=== PATIENT | female | born 2000 | race Caucasian/White ===

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

== ENCOUNTER → 2021-01-16 | Outpatient (CLI) | payer OTHER | LOC: LAB 11:30 → LAB SHORT 11:30 | DX: Z33.1 Pregnant state, incidental (principal) | CPT/HCPCS: 87081; 87150 ==

== ENCOUNTER 2021-02-10 20:05 | Inpatient (IN) | payer OTHER ==
[~2021-02-10] VITALS: Ht 154.9 cm; Wt 70.5 kg
[2021-02-10 21:12] LABS: BASOPHILS ABSOLUTE AUTO 0.05 K/mm3 (0.00-0.23); BASOPHILS PERCENT AUTO 0 % (0-2); EOSINOPHILS ABSOLUTE AUTO 0.01 K/mm3 (0.00-0.68); EOSINOPHILS PERCENT AUTO 0 % (0-6); Hematocrit 35.4 % (33.0-51.0); Hemoglobin 12.7 g/dL (11.5-16.0); IMMATURE GRAN ABSOLUTE AUTO 0.19 K/mm3 (0.00-0.10); IMMATURE GRAN PERCENT AUTO 1 % (0-1); LYMPHOCYTES ABSOLUTE AUTO 1.15 K/mm3 (0.84-5.20); LYMPHOCYTES PERCENT AUTO 5 % (21-46); MONOCYTES ABSOLUTE AUTO 1.01 K/mm3 (0.16-1.47); MONOCYTES PERCENT AUTO 5 % (4-13); Mean Corpuscular HGB 32.2 pg (26.0-34.0); Mean Corpuscular HGB Conc 35.9 g/dL (31.5-36.5); Mean Corpuscular Volume 90 fL (80-100); Mean Platelet Volume 10.4 fL (9.1-12.4); NEUTROPHILS PERCENT AUTO 89 % (41-73); Platelet Count 227 K/mm3 (150-400); RDW Coefficient Variation 11.6 % (11.7-14.2); RDW Standard Deviation 37.7 fL (35.1-46.3); Red Blood Cell Count 3.95 M/mm3 (3.80-5.20); White Blood Cell Count 21.61 K/mm3 (4.00-11.30)
[2021-02-10 21:16] LABS: Influenza A, PCR NEGATIVE (NEGATIVE); Influenza B, PCR NEGATIVE (NEGATIVE); Resp Syncytial Virus, PCR NEGATIVE (NEGATIVE); SARS-Cov-2 (COVID-19) PCR, MMC NEGATIVE (NEGATIVE)
[2021-02-11 05:37] LABS: BASOPHILS ABSOLUTE AUTO 0.04 K/mm3 (0.00-0.23); BASOPHILS PERCENT AUTO 0 % (0-2); EOSINOPHILS PERCENT AUTO 0 % (0-6); Hematocrit 32.4 % (33.0-51.0); Hemoglobin 11.5 g/dL (11.5-16.0); IMMATURE GRAN ABSOLUTE AUTO 0.19 K/mm3 (0.00-0.10); IMMATURE GRAN PERCENT AUTO 1 % (0-1); LYMPHOCYTES ABSOLUTE AUTO 1.44 K/mm3 (0.84-5.20); LYMPHOCYTES PERCENT AUTO 6 % (21-46); MONOCYTES ABSOLUTE AUTO 1.52 K/mm3 (0.16-1.47); MONOCYTES PERCENT AUTO 6 % (4-13); Mean Corpuscular HGB 31.7 pg (26.0-34.0); Mean Corpuscular HGB Conc 35.5 g/dL (31.5-36.5); Mean Corpuscular Volume 89 fL (80-100); Mean Platelet Volume 10.4 fL (9.1-12.4); NEUTROPHILS ABSOLUTE AUTO 21.66 K/mm3 (1.96-9.15); NEUTROPHILS PERCENT AUTO 87 % (41-73); Platelet Count 202 K/mm3 (150-400); RDW Coefficient Variation 11.5 % (11.7-14.2); RDW Standard Deviation 37.2 fL (35.1-46.3); Red Blood Cell Count 3.63 M/mm3 (3.80-5.20); White Blood Cell Count 24.85 K/mm3 (4.00-11.30)
--- NOTE | 2021-02-11 09:57 | NUR ---
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 AGREE WITH ASSESSMENT AND INTERVENTIONS.
--- NOTE | 2021-02-11 10:39 | NUR ---
CORE REFERRAL FAXED.
== END 2021-02-12 10:00 | disposition home or self-care (01) | DRG 807 ==
LOC: OBS 20:05 → BC 20:05 → OBS 20:30 → BC 20:31
PROVIDERS: ADMIT Registered Nurse Community Health
PROC: 10907ZC Drainage of Amniotic Fluid, Therapeutic from Products of Conception, Via Natural or Artificial Opening (ICD-10-PCS; 2021-02-10)
PROC: 10E0XZZ Delivery of Products of Conception, External Approach (ICD-10-PCS; principal; 2021-02-11)
PROC: 0HQ9XZZ Repair Perineum Skin, External Approach (ICD-10-PCS; 2021-02-11)
DX: O70.0 First degree perineal laceration during delivery (principal); Z37.0 Single live birth; Z3A.40 40 weeks gestation of pregnancy; Z20.822 Contact with and (suspected) exposure to COVID-19
CPT/HCPCS: 0241U; 36415; 85025; 86850; 86900; 86901; A9270; J1885; J2590; J3010; J7120

== ENCOUNTER 2022-05-03 01:05 | Emergency (ER) | payer OTHER ==
[~2022-05-03] VITALS: Ht 154.9 cm; Wt 54.4 kg
== END 2022-05-03 04:20 | disposition left against medical advice (07) ==
LOC: ER 01:05
DX: R06.02 Shortness of breath (principal); R11.10 Vomiting, unspecified; Z53.21 Procedure and treatment not carried out due to patient leaving prior to being seen by health care provider
CPT/HCPCS: A9270

== ENCOUNTER 2022-09-09 09:41 | Emergency (ER) | payer OTHER ==
[~2022-09-09] VITALS: Ht 154.9 cm; Wt 56.7 kg
[2022-09-09 10:35] LABS: Source, Urine Clean Catch
[2022-09-09 10:41] LABS: Appearance, Urine Hazy (Clear); Bilirubin, Urine Neg (Neg); Blood, Urine Neg (Neg); Color, Urine Yellow (P-Yellow); Glucose Qualitative, Urine Neg (Neg); Ketones, Urine Neg (Neg); Leukocyte Esterase, Urine Neg (Neg); Nitrite, Urine Neg (Neg); Protein, Urine 3+ (Neg); Urobilinogen, Urine NORM (Normal)
[2022-09-09 11:49] LABS: Bacteria Few /hpf; Hyaline Casts 0-2 /lpf (0-2); Mucus Mod (0-Heavy); Red Blood Cells, Urine 0-2 /hpf (0-2); Squamous Epithelial Cells Mod /hpf (Few); White Blood Cells, Urine 0-2 /hpf (0-5)
== END 2022-09-09 13:24 | disposition home or self-care (01) ==
LOC: ER 09:41
PROVIDERS: Physician Assistant
DX: O26.891 Other specified pregnancy related conditions, first trimester (principal); R10.9 Unspecified abdominal pain; Z3A.01 Less than 8 weeks gestation of pregnancy; Y04.0XXA Assault by unarmed brawl or fight, initial encounter; Z91.038 Other insect allergy status
CPT/HCPCS: 36415; 81001; 84702

== ENCOUNTER 2022-09-29 08:00 | Emergency (ER) | payer OTHER ==
[~2022-09-29] VITALS: Ht 154.9 cm; Wt 59.0 kg
== END 2022-09-29 09:39 | disposition home or self-care (01) ==
LOC: ER 08:00
DX: O20.9 Hemorrhage in early pregnancy, unspecified (principal); Z3A.08 8 weeks gestation of pregnancy; Z91.030 Bee allergy status; Z87.891 Personal history of nicotine dependence
CPT/HCPCS: 36415; 76801; 76817; 84702

== ENCOUNTER → 2024-01-27 | Outpatient (CLI) | payer OTHER ==
[2024-01-29 11:19] LABS: APTIMA MEDIA TYPE Urine; C. TRACHOMATIS BY TMA Negative (Negative); N. GONORRHOEAE BY TMA Negative (Negative); SPECIMEN SOURCE Urine
== END | disposition home or self-care (01) ==
LOC: LAB SHORT 16:20 → LAB 16:20
PROVIDERS: Registered Nurse Community Health
DX: Z34.83 Encounter for supervision of other normal pregnancy, third trimester (principal)
CPT/HCPCS: 87491; 87591

== ENCOUNTER → 2024-04-26 | Outpatient (CLI) | payer OTHER ==
[2024-04-26 15:08] LABS: Hematocrit 31.3 % (33.0-51.0); Hemoglobin 10.8 g/dL (11.5-16.0)
== END | disposition home or self-care (01) ==
LOC: LAB 09:30 → LAB SHORT 09:30
PROVIDERS: Registered Nurse Community Health
DX: Z34.93 Encounter for supervision of normal pregnancy, unspecified, third trimester (principal)
CPT/HCPCS: 82950; 85014; 85018

== ENCOUNTER → 2024-06-15 | Outpatient (CLI) | payer OTHER | LOC: LAB SHORT 15:18 → LAB 15:18 | DX: Z34.93 Encounter for supervision of normal pregnancy, unspecified, third trimester (principal) | CPT/HCPCS: 87081; 87150 ==

== ENCOUNTER 2024-07-09 10:26 | Inpatient (IN) | payer OTHER ==
[~2024-07-09] VITALS: Ht 154.9 cm; Wt 75.0 kg
[2024-07-09] VITALS (14 sets, daily range): BP systolic 137–170; BP diastolic 68–100
[2024-07-09] MEDS ORDERED: PRENATAL TABLE1 EAC2 PO ×2 (11:09)
[2024-07-09] MEDS ORDERED: Misoprostol 200 MCG Tab BC PRN (11:10)
[2024-07-09] MEDS ORDERED: Lactated Ringer's 1,000 ML IV PRN (11:10)
[2024-07-09] MEDS ORDERED: Misoprostol 200 MCG Tab PR PRN ×2 (11:10→13:15)
[2024-07-09] MEDS ORDERED: Methylergonovine Maleate 0.2MG / ML 1ML Amp IM PRN ×2 (11:10→13:15)
[2024-07-09] MEDS ORDERED: ePHEDrine Sulfate 50 MG/ML 1ML Injection XX PRN (11:10)
[2024-07-09] MEDS ORDERED: Carboprost Tromethamine 250 MCG/ML 1ML Amp IM PRN (11:10)
[2024-07-09] MEDS ORDERED: Oxytocin 10 Unit / ML Vial IM PRN (11:10)
[2024-07-09] MEDS ORDERED: OXYTOCIN/RINGER'S LACTATE 500 ML IV PRN (11:10)
[2024-07-09] MEDS ORDERED: Ondansetron HCl 2 MG / ML 2ML Vial IV PRN (11:10)
[2024-07-09] MEDS ORDERED: Acetaminophen 500 MG Tab PO PRN (11:10)
[2024-07-09] MEDS ORDERED: Lactated Ringer's 1,000 ML IV SCH ×3 (11:10→13:15)
[2024-07-09] MEDS ORDERED: Calcium Carbonate 500 MG Tab Chew PO SCH (11:10)
[2024-07-09] MEDS ORDERED: FentaNYL 2mcg/ml-Bup 0.1% Epd 250 ML EPI PRN (11:10)
[2024-07-09] MEDS ORDERED: OXYTOCIN/RINGER'S LACTATE 500 ML IV ONE (11:12)
[2024-07-09] MEDS ORDERED: Lactated Ringer's 1,000 ML IV ONE (11:13)
[2024-07-09] MEDS ORDERED: Tranexamic Acid 100 ML IV SCH (11:15)
[2024-07-09 11:48] LABS: BASOPHILS ABSOLUTE AUTO 0.04 K/mm3 (0.00-0.23); BASOPHILS PERCENT AUTO 0 % (0-2); EOSINOPHILS ABSOLUTE AUTO 0.04 K/mm3 (0.00-0.68); EOSINOPHILS PERCENT AUTO 0 % (0-6); Hemoglobin 11.7 g/dL (11.5-16.0); IMMATURE GRAN PERCENT AUTO 1 % (0-1); LYMPHOCYTES PERCENT AUTO 13 % (21-46); MONOCYTES PERCENT AUTO 7 % (4-13); Mean Corpuscular HGB 31.5 pg (26.0-34.0); Mean Corpuscular HGB Conc 35.5 g/dL (31.5-36.5); Mean Corpuscular Volume 89 fL (80-100); NEUTROPHILS ABSOLUTE AUTO 10.59 K/mm3 (1.96-9.15); NEUTROPHILS PERCENT AUTO 79 % (41-73); Platelet Count 208 K/mm3 (150-400); RDW Coefficient Variation 12.1 % (11.7-14.2); RDW Standard Deviation 38.8 fL (35.1-46.3); Red Blood Cell Count 3.72 M/mm3 (3.80-5.20); White Blood Cell Count 13.37 K/mm3 (4.00-11.30)
[2024-07-09] MEDS ORDERED: Benzocaine Topical Anesthetic Spray 60GM TOP PRN (13:10)
[2024-07-09] MEDS ORDERED: FLU VACC TS2024-25(6MOS UP)/PF 45 MCG/0.5 ML SYRINGE IM ONE (13:10)
[2024-07-09] MEDS ORDERED: Docusate Sodium 100 MG Cap PO PRN (13:10)
[2024-07-09] MEDS ORDERED: Witch Hazel/Glycerin PADS TOP PRN (13:10)
[2024-07-09] MEDS ORDERED: Ketorolac Tromethamine 30mg Vial IV PRN (13:15)
[2024-07-09] MEDS ORDERED: Rho(D) Immune Globulin 300 MCG / SYR IM ONE (13:15)
[2024-07-09] MEDS ORDERED: Ibuprofen 400 MG Tab PO PRN (13:15)
[2024-07-09] MEDS ORDERED: Oxytocin 10 Unit / ML Vial IM ONE (13:20)
[2024-07-09] MEDS ORDERED: Lanolin Cream TOP PRN (13:20)
[2024-07-09] MEDS ORDERED: OxyCODONE 5 mg/Acetamin 325 mg TABLET PO PRN (13:20)
[2024-07-09] MEDS ORDERED: OXYTOCIN/RINGER'S LACTATE 500 ML IV SCH (13:20)
[2024-07-09] MEDS ORDERED: Acetaminophen 325 MG TABLET PO PRN (13:20)
[2024-07-10 01:17] VITALS: BP 144/93
[2024-07-10 05:18] VITALS: BP 133/85
[2024-07-10 05:45] LABS: Hemoglobin 10.8 g/dL (11.5-16.0); Mean Corpuscular HGB 30.9 pg (26.0-34.0); Mean Corpuscular HGB Conc 34.8 g/dL (31.5-36.5); Mean Corpuscular Volume 89 fL (80-100); Mean Platelet Volume 10.6 fL (9.1-12.4); Platelet Count 209 K/mm3 (150-400); RDW Coefficient Variation 12.3 % (11.7-14.2); RDW Standard Deviation 39.8 fL (35.1-46.3); Red Blood Cell Count 3.49 M/mm3 (3.80-5.20); White Blood Cell Count 14.69 K/mm3 (4.00-11.30)
[2024-07-10 07:35] VITALS: BP 139/91
[2024-07-10] MEDS ORDERED: Prenatal Vit/FE Fumarate/FA 1 Tab PO SCH (09:00)
[2024-07-10 11:56] VITALS: BP 158/93
[2024-07-10 12:51] VITALS: BP 148/82
== END 2024-07-10 12:50 | disposition home or self-care (01) | DRG 807 ==
LOC: OBS 10:26 → BC 10:26 → OBS 10:55 → BC 10:56
PROVIDERS: ADMIT Registered Nurse Community Health
PROC: 10E0XZZ Delivery of Products of Conception, External Approach (ICD-10-PCS; principal; 2024-07-09)
PROC: 10907ZC Drainage of Amniotic Fluid, Therapeutic from Products of Conception, Via Natural or Artificial Opening (ICD-10-PCS; 2024-07-09)
DX: O48.0 Post-term pregnancy (principal); Z37.0 Single live birth; O76 Abnormality in fetal heart rate and rhythm complicating labor and delivery; O70.0 First degree perineal laceration during delivery; Z3A.40 40 weeks gestation of pregnancy; Z91.030 Bee allergy status
CPT/HCPCS: 36415; 59025; 85025; 85027; 86850; 86900; 86901; 99213; A9270; J1885; J2590

== ENCOUNTER 2024-07-13 10:05 | Emergency (ER) | payer OTHER ==
[~2024-07-13] VITALS: Ht 154.9 cm; Wt 63.5 kg
[~2024-07-13 10:05] MED LIST changes: +PRENATAL TABLE1 EAC2 PO
[2024-07-13] MEDS ORDERED: LABE100 PO (10:41)
[2024-07-13 11:00] VITALS: BP 167/99
[2024-07-13 11:05] LABS: BASOPHILS ABSOLUTE AUTO 0.06 K/mm3 (0.00-0.23); BASOPHILS PERCENT AUTO 1 % (0-2); EOSINOPHILS ABSOLUTE AUTO 0.22 K/mm3 (0.00-0.68); EOSINOPHILS PERCENT AUTO 2 % (0-6); Hematocrit 33.4 % (33.0-51.0); Hemoglobin 11.5 g/dL (11.5-16.0); IMMATURE GRAN ABSOLUTE AUTO 0.06 K/mm3 (0.00-0.10); IMMATURE GRAN PERCENT AUTO 1 % (0-1); LYMPHOCYTES ABSOLUTE AUTO 1.82 K/mm3 (0.84-5.20); LYMPHOCYTES PERCENT AUTO 19 % (21-46); MONOCYTES ABSOLUTE AUTO 0.63 K/mm3 (0.16-1.47); MONOCYTES PERCENT AUTO 7 % (4-13); Mean Corpuscular HGB Conc 34.4 g/dL (31.5-36.5); Mean Corpuscular Volume 90 fL (80-100); NEUTROPHILS PERCENT AUTO 70 % (41-73); Platelet Count 263 K/mm3 (150-400); RDW Coefficient Variation 12.2 % (11.7-14.2); RDW Standard Deviation 40.1 fL (35.1-46.3); Red Blood Cell Count 3.71 M/mm3 (3.80-5.20); White Blood Cell Count 9.39 K/mm3 (4.00-11.30)
[2024-07-13 11:10] LABS: Albumin, Blood 2.9 g/dL (3.4-5.0); Albumin/Globulin Ratio 0.7 (0.8-1.8); Bilirubin, Total 0.3 mg/dL (0.1-1.0); Bun/Creatinine Ratio 12.2 (12.0-20.0); Calcium, Blood 9.2 mg/dL (8.5-10.1); Creatinine, Blood 0.49 mg/dL (0.40-1.00); Potassium, Blood 3.6 mmol/L (3.5-5.5); Total Protein, Blood 6.9 g/dL (6.4-8.2)
[2024-07-14] MEDS ORDERED: LABE100 PO (10:10)
== END 2024-07-13 11:15 | disposition other institution (70) ==
LOC: ER 10:05
PROVIDERS: Physician Assistant
DX: O11.5 Pre-existing hypertension with pre-eclampsia, complicating the puerperium (principal); K21.9 Gastro-esophageal reflux disease without esophagitis; J45.909 Unspecified asthma, uncomplicated; Z79.899 Other long term (current) drug therapy; Z91.030 Bee allergy status
CPT/HCPCS: 80053; 85025; 99284

== ENCOUNTER 2024-07-13 11:25 | Inpatient (IN) | payer OTHER ==
[~2024-07-13] VITALS: Ht 162.6 cm; Wt 70.0 kg
[2024-07-13] VITALS (22 sets, daily range): BP systolic 119–168; BP diastolic 61–107
[~2024-07-13 11:25] MED LIST changes: +LABE100 PO
[2024-07-13] MEDS ORDERED: Lactated Ringer's 1,000 ML IV SCH (11:35)
[2024-07-13] MEDS ORDERED: Magnesium Sul 4 GM/Water100 ML 100 ML IV ONE ×2 (11:35→11:41)
[2024-07-13] MEDS ORDERED: Magnesium Sulfate 500 ML IV SCH (11:35)
[2024-07-13] MEDS ORDERED: Calcium Gluconate 0.465 mEq/ml 10 ml Vial IV PRN (11:35)
--- NOTE | 2024-07-13 11:59 | NUR ---
pt is working on getting support here, has baby by herself, not able to start magso4 without someone to be able to care for baby, support may not be here til [phone] baby is not a pt and rn unable to provide baby care. mansoor quintero left a message to call rn, she is on her way in for another pt. pt has +1 dtr bilaterally, no clonus, denies all pih symptoms, trace to +1 edema to legs and feet, face looks a little puffy, but has been crying at being readmitted. baby in moms arms, pt reports baby is breastfeed only. have crib in room for pt.
[2024-07-13] MEDS ORDERED: Labetalol HCL 5 MG/ML 4ML Injection (Single Dose) ONE (12:07)
--- NOTE | 2024-07-13 12:07 | NUR ---
RADHA GEORGES HERE ORDER FOR IV LABETALOL X1 AND THEN TO SEE HOW BP DOES TIL FAMILY GET HERE
[2024-07-13] MEDS ORDERED: Labetalol HCL 5 MG/ML 4ML Injection (Single Dose) IV ONE (12:10)
[2024-07-13] MEDS ORDERED: NIFEdipine 10 MG Cap PO ONE (13:00)
[2024-07-13] MEDS ORDERED: Ibuprofen 400 MG Tab PO PRN (13:35)
[2024-07-13] MEDS ORDERED: Labetalol HCL 100 MG TAB PO SCH (21:00)
[2024-07-14] VITALS (10 sets, daily range): BP systolic 128–170; BP diastolic 76–113
--- NOTE | 2024-07-14 07:20 | NUR ---
pt is tearful/crying. she misses her son, just wants to go home, hasnt had more than an hour of sleep, the baby feeds frequently from being woke up so much. with crying pt bp was elevated, gave labetalol early, encouraged pt to do some deep breathing, she is wanting to go home, she is aware that magso4 is usually for 24 hrs, then turn off and watch pt before sending home. she wants rn to let RADHA cnm know about her wanting to go home and why, encouraged for pt to tell her also when she makes rounds.
[2024-07-14] MEDS ORDERED: Prenatal Vit/FE Fumarate/FA 1 Tab PO SCH (09:00)
[2024-07-14] MEDS ORDERED: LABE100 PO (10:10)
--- NOTE | 2024-07-14 11:50 | NUR ---
DC INSTRUCTIONS GONE OVER WITH PT, VERBALIZED UNDERSTANDING, DENIES ANY QUESTIONS WILL TAKE BP AT HOME AND HAS PARAMETERS TO CALL RADHA CNM. PT IS AWARE HER LABETALOL CHANGED TO 3 TIMES A DAY INSTEAD OF 2.
--- NOTE | 2024-07-14 13:04 | NUR ---
RADHA GEORGES UPDATED ON BP, TO GIVE 200MG OF LABETALOL NOW AND OK TO DC HOME, RADHA GEORGES CHANGING PT SCRIPT AT [facility] TO LABETALOL 200MG TID AND TO KEEP HER SCHEDULED 1600 APPT TOMORROW FOR BP CHECK.
[2024-07-14] MEDS ORDERED: Labetalol HCL 100 MG TAB PO ONE (13:05)
--- NOTE | 2024-07-14 13:05 | NUR ---
GIVE THE 200MG OF LABETALOL AND OK FOR PT TO STILL GO HOME
--- NOTE | 2024-07-14 13:25 | NUR ---
PT HAS COPY OF [employer], IS AWARE OF NEW ORDER FOR LABETALOL 200MG TID AT [facility], PT IS GETTING DRESSED THEN WILL GIVE A WHEELCHAIR RIDE OUT. AWARE OF APPOINTMENT TOMORROW WITH RADHA GEORGES AT 1600. AWARE WHEN TO CALL RADHA GEORGES. SHE WILL WRITE HER BP DOWN AND TAKE TO RADHA GEORGES TOMORROW.
--- NOTE | 2024-07-14 13:48 | NUR ---
DC HOME, WHEELED OUT IN WHEELCHAIR, ENCOURAGE TO CALL WITH PROBLEMS
== END 2024-07-14 13:40 | disposition home or self-care (01) | DRG 951 ==
LOC: OBS 11:25 → BC 11:32
PROVIDERS: ADMIT Registered Nurse Community Health
DX: Z39.2 Encounter for routine postpartum follow-up (principal); O14.95 Unspecified pre-eclampsia, complicating the puerperium; R07.89 Other chest pain; J45.909 Unspecified asthma, uncomplicated; Z79.899 Other long term (current) drug therapy; Z91.030 Bee allergy status
CPT/HCPCS: 36415; 80053; 85025; 99211; 99284; A9270; J3475; J7120

== ENCOUNTER 2025-01-24 08:23 | Emergency (ER) | payer OTHER ==
[~2025-01-24] VITALS: Ht 154.9 cm; Wt 61.2 kg
[2025-01-24] MEDS ORDERED: Ondansetron HCl 2 MG / ML 2ML Vial IV ONE (09:55)
[2025-01-24] MEDS ORDERED: Lactated Ringer's 1,000 ML IV ONE (09:55)
[2025-01-24 10:15] LABS: BASOPHILS ABSOLUTE AUTO 0.04 K/mm3 (0.00-0.23); BASOPHILS PERCENT AUTO 0 % (0-2); EOSINOPHILS ABSOLUTE AUTO 0.01 K/mm3 (0.00-0.68); EOSINOPHILS PERCENT AUTO 0 % (0-6); Hematocrit 40.8 % (33.0-51.0); Hemoglobin 14.7 g/dL (11.5-16.0); IMMATURE GRAN ABSOLUTE AUTO 0.09 K/mm3 (0.00-0.10); IMMATURE GRAN PERCENT AUTO 0 % (0-1); LYMPHOCYTES ABSOLUTE AUTO 0.63 K/mm3 (0.84-5.20); LYMPHOCYTES PERCENT AUTO 3 % (21-46); MONOCYTES ABSOLUTE AUTO 0.92 K/mm3 (0.16-1.47); MONOCYTES PERCENT AUTO 5 % (4-13); Mean Corpuscular HGB 31.5 pg (26.0-34.0); Mean Corpuscular Volume 87 fL (80-100); Mean Platelet Volume 9.4 fL (9.1-12.4); NEUTROPHILS ABSOLUTE AUTO 18.58 K/mm3 (1.96-9.15); NEUTROPHILS PERCENT AUTO 92 % (41-73); Platelet Count 376 K/mm3 (150-400); RDW Coefficient Variation 11.7 % (11.7-14.2); RDW Standard Deviation 37.2 fL (35.1-46.3); Red Blood Cell Count 4.67 M/mm3 (3.80-5.20); White Blood Cell Count 20.27 K/mm3 (4.00-11.30)
[2025-01-24 10:40] LABS: Albumin/Globulin Ratio 1.4 (0.8-1.8); Bilirubin, Total 0.8 mg/dL (0.1-1.0); Bun/Creatinine Ratio 18.1 (12.0-20.0); Calcium, Blood 9.8 mg/dL (8.5-10.1); Creatinine, Blood 0.66 mg/dL (0.40-1.00); Globulin, Blood 3.7 g/dL (2.2-4.0); Potassium, Blood 3.2 mmol/L (3.5-5.5); Total Protein, Blood 8.7 g/dL (6.4-8.2)
[2025-01-24] MEDS ORDERED: Haloperidol Lactate Inj. 5 MG/ML Injection IV ONE (10:55)
[2025-01-24] MEDS ORDERED: Morphine Sulfate 4 MG/1 ML Injection IV ONE (11:20)
[2025-01-24 13:10] LABS: Influenza A, PCR NEGATIVE (NEGATIVE); Influenza B, PCR NEGATIVE (NEGATIVE); Resp Syncytial Virus, PCR NEGATIVE (NEGATIVE); SARS-Cov-2 (COVID-19) PCR, MMC NEGATIVE (NEGATIVE)
[2025-01-24] MEDS ORDERED: Potassium Chloride 20 MEQ/15 ML UDC PO ONE (14:10)
[2025-01-24] MEDS ORDERED: ONDA4ODT MM (15:14)
[2025-01-24 15:25] VITALS: BP 115/77
== END 2025-01-24 15:27 | disposition home or self-care (01) ==
LOC: ER 08:23
PROVIDERS: Student in an Organized Health Care Education/Training Program
DX: K52.9 Noninfective gastroenteritis and colitis, unspecified (principal); Z59.89 Other problems related to housing and economic circumstances; J45.909 Unspecified asthma, uncomplicated; K21.9 Gastro-esophageal reflux disease without esophagitis; Z91.048 Other nonmedicinal substance allergy status; Z79.899 Other long term (current) drug therapy
CPT/HCPCS: 0241U; 71046; 80053; 83690; 84703; 85025; 93005; 93010; 96361; 96374; 96375; 99284-25; A9270; J1630; J2270; J2405; J7120